=== PATIENT | female | born 1950 | race Caucasian/White ===

== ENCOUNTER 2021-04-22 11:04 | Inpatient (IN) | payer OTHER ==
[~2021-04-22] VITALS: Ht 165.1 cm; Wt 84.4 kg
[~2021-04-22 11:04] MED LIST: GLUCOPHAGE 1000; INTESTINEX680 MG PO; LEVAQUIN500 MG; PRINIVIL5 MG; ZANTAC150 MG PO
[2021-04-22] MEDS ORDERED: METFORMIN HCL1000 MG (11:14)
[2021-04-22] MEDS ORDERED: ZESTRIL5 MG PO (11:14)
[2021-04-23] MEDS ORDERED: FAMOTIDINE20 MG (11:01)
[2021-04-23] MEDS ORDERED: METFORMIN HCL1000 M3 (11:01)
[2021-04-23] MEDS ORDERED: TRULICITY1.5 MG/0.5 (11:02)
[2021-04-23] MEDS ORDERED: ATORVASTATIN CA20 MG (11:02)
[2021-04-23] MEDS ORDERED: METOPROLOL SUCC25 MG (11:02)
[2021-04-23] MEDS ORDERED: VITAMIN D350 MC3 (11:02)
[2021-04-23] MEDS ORDERED: VITAMIN C500 M1 (11:02)
[2021-04-23] MEDS ORDERED: ST. JOSEPH ASPI81 M2 (11:02)
[2021-04-27] MEDS ORDERED: INTESTINEX680 M1 PO (09:23)
[2021-04-27] MEDS ORDERED: AMOX-CLAV 875-1 EACH PO (09:23)
== END 2021-04-27 11:10 | disposition home or self-care (01) | DRG 392 ==
LOC: ER 11:04 → SURH 19:09 → MEDI 19:09 → SEC-K 19:09 → SURH 20:09
PROVIDERS: ADMIT Internal Medicine; ATTEND Internal Medicine
PROC: BW21YZZ Computerized Tomography (CT Scan) of Abdomen and Pelvis using Other Contrast (ICD-10-PCS; principal; 2021-04-22)
DX: K57.32 Diverticulitis of large intestine without perforation or abscess without bleeding (principal); R10.32 Left lower quadrant pain; K59.09 Other constipation; I11.9 Hypertensive heart disease without heart failure; E11.65 Type 2 diabetes mellitus with hyperglycemia; Z79.4 Long term (current) use of insulin; Z20.822 Contact with and (suspected) exposure to COVID-19